=== PATIENT | female | born 1980 | race Caucasian/White ===

== ENCOUNTER 2017-02-18 09:32 | Day surgery (SDC) | payer OTHER ==
--- NOTE | 2017-02-11 16:40 | HISTORY AND PHYSICAL E ---
History and Physical NAME: EDILSON RAMEY : 1980 AGE: 36Y ADMITTED: 02/18/2017 ROOM: CHIEF COMPLAINT: Ulcerative colitis. HISTORY OF PRESENT ILLNESS: Known to us. Presented at this time with rectal bleeding ulcerative colitis. We saw in 2010 when she underwent colonoscopy. She is on Asacol. PLAN: Colonoscopy. PAST SURGICAL HISTORY: Negative. SOCIAL HISTORY: Does not smoke, does not drink. ALLERGIES: No known allergies. REVIEW OF SYSTEMS: Rectal bleeding, ulcerative colitis. EXAM: VITAL SIGNS: Blood pressure is 120/80, pulse 80, respirations 18, temp is 98. HEENT: Normal. ABDOMEN: Soft. NEUROLOGIC: Negative. CONCLUSION: Ulcerative colitis. PLAN: Colonoscopy. MEDICATIONS: 1. Asacol. 2. Lialda. 3. Canasa. PLAN: Colon scheduled for 02/18. DICTATING PHYSICIAN: CHIVO SOSA M.D. [id number] PHY#: [id number] ID: [id number] JOB#: [id number] ACCT: [id number] cc:CHIVO SOSA M.D., SWETANG M.D. >
[~2017-02-18 09:32] MED LIST: EPINEPHRINE INJ 1 MG/10 ML DISP.SYRIN ONE; FENTANYL CITRATE INJ/PF 100 MCG/2 ML AMPUL ONE; FLUMAZENIL INJ 0.5 MG/5 ML VIAL IV ONE; GLUCAGON,HUMAN RECOMB 1 MG INJ ONE; GLYCOPYRROLATE INJ 0.4 MG/2 ML VIAL ONE; LIDOCAINE 2% JELLY 30 ML TUBE ONE; NALOXONE HCL INJ/PF 0.4 MG/1 ML SDV ONE; ONDANSETRON HCL INJ/PF 4 MG/2 ML SDV ONE
[2017-02-18] MEDS: MIDAZOLAM 2 MG/2 ML INJ ONE ×3 (10:10→10:18)
[2017-02-18] MEDS: FENTANYL CITRATE INJ/PF 100 MCG/2 ML AMPUL ONE ×2 (10:12→10:21)
[2017-02-18 11:30] VITALS: BP 104/73
[2017-02-18 11:30] LABS: ABSOLUTE BASOPHILS # (AUTO) 0.1 10^3/uL (0.0-0.2); ABSOLUTE EOSINOPHILS # (AUTO) 0.2 10^3/uL (0.0-0.6); ABSOLUTE LYMPHOCYTES (AUTO) 1.9 10^3/uL (0.5-4.7); ABSOLUTE MONOCYTES (AUTO) 0.4 10^3/uL (0.1-1.4); ABSOLUTE NEUT (AUTO) 4.4 10^3/uL (1.7-8.2); BASOPHILS % (AUTO) 0.8 % (0-2); EOSINOPHILS % (AUTO) 2.5 % (0-6); HEMATOCRIT 36.5 % (36.0-47.0); HEMOGLOBIN 12.3 g/dL (12.0-15.5); HGB HCT DIFFERENCE 0.4; LYMPHOCYTES % (AUTO) 27.1 % (13-45); MEAN CORPUSCULAR HEMOGLOBIN 28.3 pg (27.0-33.4); MEAN CORPUSCULAR HGB CONC 33.7 g/dL (32.0-36.0); MEAN CORPUSCULAR VOLUME 84 fl (80-97); MONOCYTES % (AUTO) 5.1 % (3-13); RED BLOOD COUNT 4.34 10^6/uL (3.72-5.28); SEGMENTED NEUTROPHILS % (AUTO) 64.5 % (42-78); WHITE BLOOD COUNT 6.9 10^3/uL (4.0-10.5)
[2017-02-18 12:11] LABS: ERYTHROCYTE SEDIMENTATION RATE 21 mm/hr (0-20)
--- NOTE | 2017-02-18 15:39 | DISCHARGE SUMMARY E ---
Discharge Summary NAME: EDILSON RAMEY : 1980 AGE: 36Y ADMITTED: 02/18/2017 DISCHARGED: 02/18/2017 PROCEDURE: Colonoscopy, biopsy. HISTORY OF PRESENT ILLNESS: Patient is a 36-year-old female who presented with rectal bleeding. She is known to have ulcerative colitis well controlled on mesalamine, Lialda 1.2 g 3 tablets daily, vitamin D. DISCHARGE PLAN: Awaiting biopsy results. Continue medications, Lialda. Soft diet today. Patient to see us in the office in the next few days. FINAL DIAGNOSIS: Ulcerative colitis. PLAN: Consider age and followup colonoscopy after 2 years. Patient allergic to PENICILLIN. DICTATING PHYSICIAN: CHIVO SOSA M.D. [id number] PHY#: [id number] ID: [id number] JOB#: [id number] ACCT: [id number] cc:CHIVO SOSA M.D., SWETANG M.D. >
--- NOTE | 2017-02-19 10:43 | OPERATIVE REPORT E ---
Operative Report NAME: EDILSON RAMEY : 1980 AGE: 36Y DATE OF SURGERY: ROOM: PREOPERATIVE DIAGNOSIS: BLEEDING ULCERATIVE COLITIS. POSTOPERATIVE DIAGNOSIS: ULCERATIVE COLITIS WITH SEIZURE, tissue removed of the biopsy right colon, biopsy left colon, biopsy rectum. ANESTHESIA: Versed 4, fentanyl 150. DESCRIPTION: Rectal exam shows inflammation in the rectum. Sigmoid shows less inflammation. Descending colon mild inflammation. Transverse colon looks normal. Ascending colon looks normal. Cecum normal. Biopsy obtained right colon the appendix visualized. Cecum visualized. There are no polyps, no malignancy. Scope was done back from cecum, ascending, transverse, descending, sigmoid all the way to the rectum. SURGEON: CHIVO SOSA M.D. CONCLUSION: Ulcerative colitis diffuse more prominent in the rectal sigmoid colon. No evidence of malignancy. PLAN: Awaiting biopsy results. Consider for colonoscopy every 2 years. FINAL DIAGNOSIS: Ulcerative colitis. No evidence of malignancy. Mostly involving the rectal sigmoid colon. DICTATING PHYSICIAN: CHIVO SOSA M.D. [id number] PHY#: [id number] ID: [id number] JOB#: [id number] ACCT: [id number] cc:CHIVO SOAS M.D. >
== END 2017-02-18 11:40 | disposition home or self-care (01) ==
LOC: END 09:32
PROVIDERS: ATTEND Specialist
PROC: 0DBG8ZX Excision of Left Large Intestine, Via Natural or Artificial Opening Endoscopic, Diagnostic (ICD-10-PCS; 2017-02-18)
PROC: 0DBP8ZX Excision of Rectum, Via Natural or Artificial Opening Endoscopic, Diagnostic (ICD-10-PCS; 2017-02-18)
PROC: 0DBF8ZX Excision of Right Large Intestine, Via Natural or Artificial Opening Endoscopic, Diagnostic (ICD-10-PCS; principal; 2017-02-18 10:00)
DX: K51.90 Ulcerative colitis, unspecified, without complications (principal); K62.89 Other specified diseases of anus and rectum; K62.5 Hemorrhage of anus and rectum; Z79.899 Other long term (current) drug therapy; Z88.0 Allergy status to penicillin
CPT/HCPCS: 45380; 36415; 85025; 85652; 86140; 88305 ×2; J2250; J3010; J2405; J0171; J1610; J2310; J3490

== ENCOUNTER 2017-11-10 09:29 | Emergency (ER) | payer OTHER ==
[2017-11-10] MEDS ORDERED: ACETAMINOPHEN 325 MG TABLET PO ONE (09:31)
--- NOTE | 2017-11-10 10:21 | ER Document Report ---
ED General - General Chief Complaint: Foot Pain Stated Complaint: LEFT FOOT PAIN/SWELLING Time Seen by Provider: 11/10/17 10:09 Mode of Arrival: Ambulatory Information source: Patient Notes: Patient is a 37-year-old female who presents with left ankle and foot pain that started 4 days ago. She states she possibly twisted it but is unsure of a specific injury. She did elevate it and took ibuprofen last night and was given Tylenol here for pain. She endorses associated swelling but denies any redness, warmth, ecchymosis. Otherwise she is doing well. TRAVEL OUTSIDE OF THE [place] IN LAST 30 DAYS: No - Related Data Allergies/Adverse Reactions: Penicillins Allergy (Severe, Verified 02/17/17 13:31) swelling,rash Past Medical History - General Information source: Patient - Social History Smoking Status: Never Smoker Chew tobacco use (# tins/day): No Frequency of alcohol use: Occasional Drug Abuse: None Family History: Reviewed & Not Pertinent, Hypertension Patient has suicidal ideation: No Patient has homicidal ideation: No - Past Medical History Cardiac Medical History: Denies: Hx Coronary Artery Disease, Hx Heart Attack, Hx Hypertension Pulmonary Medical History: Reports: Hx Asthma Denies: Hx Bronchitis, Hx COPD, Hx Pneumonia Neurological Medical History: Reports: Hx Migraine. Denies: Hx Cerebrovascular Accident, Hx Seizures Renal/ Medical History: Reports: Hx Ovarian Cysts - hx of. Denies: Hx Kidney Stones, Hx Peritoneal Dialysis, Hx Pelvic Inflammatory Disease Malignancy Medical History: Denies: Hx Breast Cancer, Hx Cervical Cancer, Hx Ovarian Cancer GI Medical History: Reports: Hx Ulcerative Colitis. Denies: Hx Gastroesophageal Reflux Disease, Hx Hiatal Hernia, Hx Ulcer Musculoskeltal Medical History: Denies Hx Arthritis, Denies Hx Fibromyalgia Traumatic Medical History: Reports: Hx Fractures - rt collarbone,sternum,ribs bilateral Infectious Medical History: Denies: Hx HIV Past Surgical History: Reports: Hx Section - x1, Hx Cholecystectomy - x1, Hx Tubal Ligation. Denies: Hx Hysterectomy, Hx Pacemaker - Immunizations Hx Diphtheria, Pertussis, Tetanus Vaccination: Yes Review of Systems - Review of Systems Constitutional: See HPI EENT: No symptoms reported Cardiovascular: No symptoms reported Respiratory: No symptoms reported Gastrointestinal: No symptoms reported Genitourinary: No symptoms reported Female Genitourinary: No symptoms reported Musculoskeletal: See HPI Skin: No symptoms reported Hematologic/Lymphatic: No symptoms reported Neurological/Psychological: See HPI Physical Exam - Notes Notes: PHYSICAL EXAM: CONSTITUTIONAL: Alert and oriented, well-appearing and in no acute distress. HENT: Normocephalic, atraumatic. Trachea midline. Uvula midline. Moist mucous membranes. EYES: Pupils equal round and reactive to light, EOM intact. Sclera anicteric, conjunctiva are normal. No entrapment. NECK: supple without lymphadenopathy. No midline tenderness or paraspinous muscle spasms. No step-offs or deformities. ROM intact. HEART: Regular rate and rhythm without murmurs. LUNGS: CTAB and equal. No wheezes, rales or rhonchi. BACK: nontender, no paraspinous spasm, 5+/5 strengths, DTRs 2+, SLR -. EXTREMITIES: Left ankle -tender to palpation over lateral malleolus with mild edema, no ecchymosis, no deformity, no erythema or warmth. Range of motion limited secondary to pain, no pitting edema. No cyanosis. Cap Refill <3 seconds. NEURO: Cranial nerves grossly intact. Normal sensory/motor exams. PSYCH: Normal mood, normal affect. SKIN: Warm and dry. Normal turgor. No rashes or lesions noted. Course - Re-evaluation Re-evalutation: 11/10/17 10:21 Patient seen and examined. No obvious deformity on exam. Neurovascular intact including good distal pedal pulses. Will obtain x-ray and patient given Tylenol. 11/10/17 11:26 Reviewed imaging studies. No fracture dislocation, mild tissue swelling. Will treat for ankle sprain with ankle stirrup splint and crutches. Will treat with NSAIDs and advised RICE care instructions. Advised she can follow-up with orthopedics. At this time, will discharge with return precautions and follow-up recommendations. Verbal discharge instructions given at the bedside and opportunity for questions given. Medication warnings reviewed. Patient is in agreement with this plan and has verbalized understanding of return precautions and the need for primary care follow-up in the next 24-72 hours. - Diagnostic Test Radiology reviewed: Image reviewed, Reports reviewed Discharge - Discharge Clinical Impression: Left ankle sprain Qualifiers: Encounter type: initial encounter Involved ligament of ankle: unspecified ligament Qualified Code(s): S93.402A - Sprain of unspecified ligament of left ankle, initial encounter Condition: Stable Disposition: HOME, SELF-CARE Additional Instructions: SPRAIN: Your injury is a sprain. A sprain results from stretching or tearing of the ligaments, usually from a twisting injury. The ligaments will require time and protection in order to heal properly. Many sprains are quite disabling and should be taken seriously. The usual initial treatment of sprains is cold packs, elevation, and rest of the injured area. Your physician has assessed the seriousness of your ligament injury, and has outlined a treatment plan. Understand that this treatment may change, depending on how you progress. If a re-examination was recommended, it is important that you follow up as instructed. Call the doctor any time if there is severe pain, numbness, or loss of function in the injured area. TEE WRAP: A compression dressing (tee wrap) has been placed. This helps hold the area still. It limits swelling and internal bleeding. The wrap should be comfortably snug -- not tight. You should feel a sense of pressure, but not severe pain under the wrap. Unless the physician tells you otherwise, you can adjust the wrap for comfort. If the wrap causes symptoms suggesting it's too tight -- uncomfortable pressure, swelling or discoloration beyond the wrap, numbness, or severe pain - - you must loosen the wrap. If these symptoms don't resolve promptly, return for re-evaluation. SPRAINED ANKLE: Your sprained ankle results from stretching or tearing of the ligaments which support the ankle. This usually results from twisting the foot inward and under. The ligaments will require time and protection in order to heal properly. Many ankle sprains are quite disabling, and should be taken seriously. The usual treatment for an ankle sprain is cold packs; protection with tape , splints, or wraps; elevation; and staying off the ankle for at least a day. As the ankle improves, you can walk IF it's not painful to bear weight. Sports are best postponed until healing is complete. More serious sprains usually require strengthening exercises after early healing. Your physician has assessed the seriousness of the ligament injury to your ankle. However, the treatment may change, depending on how your ankle progresses. If further exams were recommended, it is important that you follow through. Call the doctor if your foot becomes numb, painful, or severely swollen. USE OF CRUTCHES: The doctor has recommended that you not bear weight at this time. You will need to use crutches. Adjust the crutches so the tops come to about two inches under the armpit while you are standing upright. Use your hands -- not your armpits -- to support your weight. To get into a chair, support yourself with one crutch on the injured side. Hold the chair with the other hand, then lower yourself while putting all your weight on the good leg. Going up stairs is `good leg up, step up, then bring up crutches and bad leg.' Down stairs is `bad leg and crutches down, then bring good leg down.' If you develop numbness or swelling in an arm or hand, you are using the crutches incorrectly. Return if you are having any problems with the crutches. ICE & ELEVATION: Apply ice packs frequently against the painful area. Many different schedules are recommended, such as "20 minutes on, 20 minutes off" or "one hour ice, two hours rest." If you need to work, you may need to go longer between ice treatments. You should plan to have the area ice packed AT LEAST one- fourth of the time. The ice should be applied over the wrap, tape, or splint, or over a layer of cloth -- not directly against the skin. Some ice bags have a built-in cloth and can be put directly on the skin. Your injured part should be elevated as much as possible over the next 48 hours. Try to keep the injury above the level of the heart. Avoid use of the injured area. Elevation and rest will decrease the swelling. USE OF EVOT-CGU-GOFBKAK IBUPROFEN: Ibuprofen (Advil, Nuprin, Medipren, Motrin IB) is a medication for fever and pain control. In addition, it has anti- inflammatory effects which may be beneficial, especially in the treatment of injuries. It's best to take ibuprofen with food. Persons with ulcer disease or allergy to aspirin should notify their physician of this before taking ibuprofen. Ibuprofen can be given every four to six hours, for a total of four doses daily. Age Pain or fever dose Antiinflammatory dose 6-8 yr 200 mg (1 tab) 200 mg (1 tab) 9-11 yr 200 mg (1 tab) 200-400 mg (1-2 tab) 11-14 yr 200-400 mg (1-2 tab) 400 mg (2 tab) 15-adult 400 mg (2 tab) 600 mg (3 tab) FOLLOW-UP CARE: If you have been referred to a physician for follow-up care, call the physician s office for an appointment as you were instructed or within the next two days. If you experience worsening or a significant change in your symptoms, notify the physician immediately or return to the Emergency Department at any time for re-evaluation. Prescriptions: Naproxen [Naprosyn 250 mg Tablet] 500 mg PO BID #20 tablet
--- NOTE | 2017-11-10 11:14 | RADIOLOGY REPORT (SQ) ---
EXAM DESCRIPTION: ANKLE LEFT COMPLETE COMPLETED DATE/TIME: 11/10/2017 10:56 am REASON FOR STUDY: left ankle pain and swelling COMPARISON: None. NUMBER OF VIEWS: Three views. TECHNIQUE: AP, lateral, and oblique without weight bearing radiographic images acquired of the left ankle. LIMITATIONS: None. FINDINGS: MINERALIZATION: Normal. BONES: No acute fracture or dislocation. No worrisome bone lesions. Small heel spur JOINTS: No effusions. SOFT TISSUES: Mild generalized soft tissue swelling OTHER: No other significant finding. IMPRESSION: Mild soft tissue swelling. Small heel spur. Study otherwise normal. TECHNICAL DOCUMENTATION: JOB ID: [id number] [email or web address]
[2017-11-10 12:16] VITALS: BP 129/83
== END 2017-11-10 12:15 | disposition home or self-care (01) ==
LOC: ER 09:29
DX: S93.402A Sprain of unspecified ligament of left ankle, initial encounter (principal); M79.672 Pain in left foot; M79.89 Other specified soft tissue disorders; X50.1XXA Overexertion from prolonged static or awkward postures, initial encounter
CPT/HCPCS: 99283

== ENCOUNTER 2018-01-24 12:23 | Emergency (ER) | payer OTHER ==
[2018-01-24] MEDS ORDERED: ACETAMINOPHEN 325 MG TABLET PO ONE (13:45)
[2018-01-24] MEDS ORDERED: CYCLOBENZAPRINE HCL 10 MG TABLET PO ONE (13:46)
[2018-01-24] MEDS ORDERED: KETOROLAC TROMETHAMINE INJ/PF 30 MG/1 ML SDV IM ONE (13:49)
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
[2018-01-24 14:47] VITALS: BP 127/81
== END 2018-01-24 14:47 | disposition home or self-care (01) ==
LOC: ER 12:23
DX: S16.1XXA Strain of muscle, fascia and tendon at neck level, initial encounter (principal); S29.012A Strain of muscle and tendon of back wall of thorax, initial encounter; S46.912A Strain of unspecified muscle, fascia and tendon at shoulder and upper arm level, left arm, initial encounter; V49.40XA Driver injured in collision with unspecified motor vehicles in traffic accident, initial encounter; J45.909 Unspecified asthma, uncomplicated; Z87.81 Personal history of (healed) traumatic fracture; Z88.0 Allergy status to penicillin
CPT/HCPCS: 99284; 96372; J1885

== ENCOUNTER 2019-03-07 10:33 | Day surgery (SDC) | payer OTHER ==
[~2019-03-07 10:33] MED LIST changes: -EPINEPHRINE INJ 1 MG/10 ML DISP.SYRIN ONE; -FENTANYL CITRATE INJ/PF 100 MCG/2 ML AMPUL ONE; -FLUMAZENIL INJ 0.5 MG/5 ML VIAL IV ONE; -GLUCAGON,HUMAN RECOMB 1 MG INJ ONE; -GLYCOPYRROLATE INJ 0.4 MG/2 ML VIAL ONE; -LIDOCAINE 2% JELLY 30 ML TUBE ONE; -NALOXONE HCL INJ/PF 0.4 MG/1 ML SDV ONE; -ONDANSETRON HCL INJ/PF 4 MG/2 ML SDV ONE; +PROPOFOL INJ 200 MG/20 ML VIAL IV ONE
[2019-03-07 13:26] VITALS: BP 119/72
--- NOTE | 2019-03-07 14:00 | Operative Report ---
Operative Report DATE OF SURGERY: 03/07/19 Operative Report: The risks, benefits and alternatives of the procedure including the risk of bleeding, perforation requiring surgery have been explained to the patient in detail and informed consent has been obtained. Patient is placed in a left, lateral decubital position. Timeout was called. Propofol medication is administered. A rectal examination is done which did not reveal any masses, tears or fissures. An Olympus videoscope was introduced into the patient's re ctum. The scope was then carefully advanced all the way to the cecum. The cecum was identified by the usual anatomical landmarks including the ileocecal valve as well as the appendiceal office. Photodocumentation is obtained. The scope was then sequentially pulled back via the rest segments of the colon including the ascending colon, hepatic flexure, transverse colon, splenic flexure, descending colon and finally into the rectosigmoid portions of the colon. Retroflexion maneuvers performed. PREOPERATIVE DIAGNOSIS: History of ulcerative colitis POSTOPERATIVE DIAGNOSIS: There is a slight mucosal edema and inflammation noted in the area of the rectum as well as on the right side of the colon with loss of mucosal blood vessel architecture. Intubation of the terminal ileum is done to rule out Crohn's disease. Internal hemorrhoids OPERATION: Colonoscopy with biopsy SURGEON: HAZEL LAURENT ANESTHESIA: LMAC TISSUE REMOVED OR ALTERED: As noted above. COMPLICATIONS: None. ESTIMATED BLOOD LOSS: None. INTRAOPERATIVE FINDINGS: As noted above. PROCEDURE: Patient tolerated the procedure well. No immediate postprocedure complications are noted. Patient discharged in good condition. Discharge date 03/07/2019. Discharge diet: Regular. Discharge activity: Regular. 2 to 3-week follow-up to discuss findings. Patient is instructed to call the office or proceed to the emergency room should there be any further questions. Wait on the pathology.
== END 2019-03-07 13:30 | disposition home or self-care (01) ==
LOC: END 10:33
PROVIDERS: ATTEND Internal Medicine Gastroenterology
DX: K92.1 Melena (principal); K52.9 Noninfective gastroenteritis and colitis, unspecified; K64.8 Other hemorrhoids; E66.9 Obesity, unspecified; D51.9 Vitamin B12 deficiency anemia, unspecified; J45.909 Unspecified asthma, uncomplicated; Z88.0 Allergy status to penicillin; Z68.41 Body mass index [BMI] 40.0-44.9, adult; Z79.51 Long term (current) use of inhaled steroids; Z79.899 Other long term (current) drug therapy
CPT/HCPCS: 45380; 88305 ×2; J2704

== ENCOUNTER → 2019-03-21 | Outpatient (CLI) | payer OTHER ==
[2019-03-22 08:42] LABS: HEPATITIS A AB IGM Negative (Negative); HEPATITIS B CORE AB IGM Negative (Negative); HEPATITS B SURFACE ANTIGEN Negative (Negative)
[2019-03-22 10:55] LABS: HEPATITIS C VIRUS ANTIBODY <0.1 s/co ratio (0.0-0.9)
== END ==
LOC: OD 08:25
PROVIDERS: ATTEND Internal Medicine Gastroenterology
DX: K50.90 Crohn's disease, unspecified, without complications (principal)
CPT/HCPCS: 36415; 80074

== ENCOUNTER 2019-03-29 07:34 | Observation (INO) | payer OTHER ==
[2019-03-29] MEDS ORDERED: ASPIRIN 81 MG TABLET, CHEWABLE PO ONE (08:19)
--- NOTE | 2019-03-29 08:20 | ER Document Report ---
ED General - General Chief Complaint: Chest Pain Stated Complaint: RIGHT SIDE NUMBNESS Time Seen by Provider: 03/29/19 07:58 Primary Care Provider: HAZEL LAURENT MD [Primary Care Provider] - Follow up as needed Notes: This is a 38-year-old pleasant female to the emergency department for evaluation of right facial numbness, chest pain and not feeling right for approximately 2 weeks now. Was seen by her primary care doctor and had a head CT done 1 week ago as she was complaining of numbness on the right side of the face. History of ulcerative colitis. Currently on steroids. On diabetes medications. States that she may feel a little weakness on the right upper extremity and right lower extremity as well. States that she had some slurred speech as well. Denies any blurred vision. Denies any significant headache. No fever. No neck stiffness. No prior history of MS. TRAVEL OUTSIDE OF THE [place] IN LAST 30 DAYS: No - HPI Onset/Duration: Gradual, Constant Severity: Mild Pain Level: 1 Associated symptoms: Chest pain - Related Data Allergies/Adverse Reactions: Penicillins Allergy (Severe, Verified 03/29/19 10:53) swelling,rash Past Medical History - General Information source: Patient - Social History Smoking Status: Never Smoker Frequency of alcohol use: None Drug Abuse: None Lives with: Family Family History: Arthritis, COPD, Hyperlipidemia, Hypertension, Malignancy. denies: CAD, CVA, DM, Thyroid Disfunction - Past Medical History Cardiac Medical History: Denies: Hx Coronary Artery Disease, Hx Heart Attack, Hx Hypertension Pulmonary Medical History: Reports: Hx Asthma Denies: Hx Bronchitis, Hx COPD, Hx Pneumonia Neurological Medical History: Reports: Hx Migraine. Denies: Hx Cerebrovascular Accident, Hx Seizures Renal/ Medical History: Reports: Hx Ovarian Cysts - hx of. Denies: Hx Kidney Stones, Hx Peritoneal Dialysis, Hx Pelvic Inflammatory Disease Malignancy Medical History: Denies: Hx Breast Cancer, Hx Cervical Cancer, Hx Ovarian Cancer GI Medical History: Reports: Hx Ulcerative Colitis. Denies: Hx Gastroesophageal Reflux Disease, Hx Hiatal Hernia, Hx Ulcer Musculoskeletal Medical History: Denies Hx Arthritis, Denies Hx Fibromyalgia Traumatic Medical History: Reports: Hx Fractures - rt collarbone,sternum,ribs bilateral Infectious Medical History: Denies: Hx HIV Past Surgical History: Reports: Hx Section - x1, Hx Cholecystectomy - x1, Hx Tubal Ligation. Denies: Hx Hysterectomy, Hx Pacemaker - Immunizations Immunizations up to date: Yes Hx Diphtheria, Pertussis, Tetanus Vaccination: Yes Review of Systems - Review of Systems Notes: Constitutional: denies: Chills, Diaphoresis, Fever, Malaise, Weakness EENT: denies: Eye discharge, Blurred vision, Tearing, Double vision, Nose congestion, Nose discharge, Throat swelling, Mouth pain Cardiovascular: denies: Palpitations, Heart racing, Orthopnea, Dyspnea, +Chest pain Respiratory: denies: Cough, Hurts to breathe, Wheezing, Shortness of breath Gastrointestinal: denies: Abdominal pain, Diarrhea, Nausea, Vomiting, Black stools, bright red blood in stool Genitourinary: denies: Burning, Dysuria, Discharge, Frequency, Flank pain, Hematuria Musculoskeletal: denies: Joint pain, Joint swelling, Muscle pain, Muscle stiffness, back pain Hematologic/Lymphatic: denies: Anemia, Easy bleeding, Easy bruising, Blood cl ots Neurological/Psychological: denies: Confusion, Dementia, Depression, Loss of consciousness. Complaining of weakness and numbness on the right side of the body especially the face. Questionable slurred speech? Skin: No lesions, no masses, no skin breakdown, no abscesses Physical Exam - Vital signs Vitals: Temp Pulse Resp BP Pulse Ox 98 F 85 18 130/79 H 97 03/29/19 07:43 03/29/19 07:43 03/29/19 07:43 03/29/19 07:43 03/29/19 07:43 Interpretation: Normal - General General appearance: Appears well, Alert - HEENT Head: Normocephalic, Atraumatic Eyes: Normal Pupils: PERRL - Respiratory Respiratory status: No respiratory distress Chest status: Nontender Breath sounds: Normal Chest palpation: Normal - Cardiovascular Rhythm: Regular Heart sounds: Normal auscultation Murmur: No - Abdominal Inspection: Normal Distension: No distension Bowel sounds: Normal Tenderness: Nontender Organomegaly: No organomegaly - Back Back: Normal, Nontender - Extremities General upper extremity: Normal inspection, Nontender, Normal color, Normal ROM, Normal temperature General lower extremity: Normal inspection, Nontender, Normal color, Normal ROM, Normal temperature, Normal weight bearing. No: Julius's sign - Neurological Neuro grossly intact: Yes Cognition: Normal Orientation: AAOx4 Decherd Coma Scale Eye Opening: Spontaneous Decherd Coma Scale Verbal: Oriented Edgardo Coma Scale Motor: Obeys Commands Decherd Coma Scale Total: 15 Speech: Normal Motor strength normal: LUE, LLE. No: RUE, RLE Additional motor exam normals: Weakness - Light weakness noted in the right upper extremity and right lower extremity. There is appeared to be a small pronator drift on the right both of the upper and lower extremities. Sensory: Normal - Psychological Associated symptoms: Normal affect, Normal mood - Skin Skin Temperature: Warm Skin Moisture: Dry Skin Color: Normal Course - Re-evaluation Re-evalutation: 03/29/19 11:09 Laboratory 03/29/19 03/29/19 03/29/19 08:30 08:30 08:30 WBC 11.1 H RBC 4.71 Hgb 13.1 Hct 39.3 MCV 83 MCH 27.8 MCHC 33.3 RDW 13.8 Plt Count 274 Seg Neutrophils % 83.0 H Lymphocytes % 12.7 L Monocytes % 2.8 L Eosinophils % 0.6 Basophils % 0.9 Absolute Neutrophils 9.2 H Absolute Lymphocytes 1.4 Absolute Monocytes 0.3 Absolute Eosinophils 0.1 Absolute Basophils 0.1 PT 12.2 INR 0.86 APTT 24.1 Sodium 140.0 Potassium 4.5 Chloride 103 Carbon Dioxide 27 Anion Gap 10 BUN 18 Creatinine 0.81 Est GFR ( Amer) > 60 Est GFR (Non-Af Amer) > 60 Glucose 103 Calcium 9.3 Total Bilirubin 1.0 Direct Bilirubin 0.2 Neonat Total Bilirubin Not Reportable Neonat Direct Bilirubin Not Reportable Neonat Indirect Bili Not Reportable AST 15 ALT 26 Alkaline Phosphatase 80 Creatine Kinase 50 CK-MB (CK-2) Troponin I Total Protein 6.8 Albumin 4.1 03/29/19 08:30 WBC RBC Hgb Hct MCV MCH MCHC RDW Plt Count Seg Neutrophils % Lymphocytes % Monocytes % Eosinophils % Basophils % Absolute Neutrophils Absolute Lymphocytes Absolute Monocytes Absolute Eosinophils Absolute Basophils PT INR APTT Sodium Potassium Chloride Carbon Dioxide Anion Gap BUN Creatinine Est GFR ( Amer) Est GFR (Non-Af Amer) Glucose Calcium Total Bilirubin Direct Bilirubin Neonat Total Bilirubin Neonat Direct Bilirubin Neonat Indirect Bili AST ALT Alkaline Phosphatase Creatine Kinase CK-MB (CK-2) < 0.22 Troponin I < 0.012 Total Protein Albumin Chest X-Ray 03/29/19 08:19 IMPRESSION: 1. No significant interval changes since the prior study dated 03/21/2014. No acute findings. Head MRI 03/29/19 08:19 IMPRESSION: NORMAL MRI OF THE BRAIN WITHOUT INTRAVENOUS GADOLINIUM CONTRAST. EVIDENCE OF ACUTE STROKE: NO. Patient still has weakness of the right upper extremity and mild pronator drift in the setting of a normal MRI. Very uncomfortable discharging a 38-year-old patient with these neurological symptoms. I have consulted with the hospitalist. At this time I am going to admit her for further evaluation and treatment. - Vital Signs Vital signs: Temp Pulse Resp BP Pulse Ox 98.8 F 85 17 135/84 H 99 03/29/19 09:54 03/29/19 07:43 03/29/19 10:01 03/29/19 10:01 03/29/19 10:01 - Laboratory Result Diagrams: 03/29/19 08:30 03/29/19 08:30 Laboratory results interpreted by me: 03/29/19 08:30 WBC 11.1 H Seg Neutrophils % 83.0 H Lymphocytes % 12.7 L Monocytes % 2.8 L Absolute Neutrophils 9.2 H - EKG Interpretation by De EKG shows normal: Sinus rhythm, Intervals, QRS Complexes, ST-T Waves Voltage: Consistant with LVH Discharge - Discharge Clinical Impression: Right sided weakness Condition: Good Disposition: ADMITTED INPATIENT Admitting Provider: Efrain (Hospitalist) Unit Admitted: Telemetry Referrals: HAZEL LAURENT MD [Primary Care Provider] - Follow up as needed
[2019-03-29 08:45] LABS: ABSOLUTE BASOPHILS # (AUTO) 0.1 10^3/uL (0.0-0.2); ABSOLUTE EOSINOPHILS # (AUTO) 0.1 10^3/uL (0.0-0.6); ABSOLUTE LYMPHOCYTES (AUTO) 1.4 10^3/uL (0.5-4.7); ABSOLUTE MONOCYTES (AUTO) 0.3 10^3/uL (0.1-1.4); ABSOLUTE NEUT (AUTO) 9.2 10^3/uL (1.7-8.2); BASOPHILS % (AUTO) 0.9 % (0-2); EOSINOPHILS % (AUTO) 0.6 % (0-6); HEMATOCRIT 39.3 % (36.0-47.0); HEMOGLOBIN 13.1 g/dL (12.0-15.5); LYMPHOCYTES % (AUTO) 12.7 % (13-45); MEAN CORPUSCULAR HEMOGLOBIN 27.8 pg (27.0-33.4); MEAN CORPUSCULAR HGB CONC 33.3 g/dL (32.0-36.0); MEAN CORPUSCULAR VOLUME 83 fl (80-97); MONOCYTES % (AUTO) 2.8 % (3-13); PLATELET COUNT 274 10^3/uL (150-450); RED BLOOD COUNT 4.71 10^6/uL (3.72-5.28); RED CELL DISTRIBUTION WIDTH 13.8 % (11.5-14.0); TOTAL CELLS COUNTED % (AUTO) 100 %; WHITE BLOOD COUNT 11.1 10^3/uL (4.0-10.5)
[2019-03-29 08:52] LABS: INTERNATIONAL RATION (INR) 0.86; PARTIAL THROMBOPLASTIN TIME 24.1 SEC (23.5-35.8); PROTHROMBIN TIME 12.2 SEC (11.4-15.4)
[2019-03-29 09:10] LABS: ALANINE AMINOTRANSFERASE 26 U/L (9-52); ALBUMIN 4.1 g/dL (3.5-5.0); ALKALINE PHOSPHATASE 80 U/L (38-126); ANION GAP 10 (5-19); ASPARTATE AMINO TRANSFERASE 15 U/L (14-36); BILIRUBIN,DIRECT 0.2 mg/dL (0.0-0.4); BLOOD UREA NITROGEN 18 mg/dL (7-20); CALCIUM 9.3 mg/dL (8.4-10.2); CARBON DIOXIDE 27 mmol/L (22-30); CHLORIDE 103 mmol/L (98-107); CREATINE KINASE 50 U/L (30-135); GLUCOSE 103 mg/dL (75-110); POTASSIUM 4.5 mmol/L (3.6-5.0); TOTAL PROTEIN 6.8 g/dL (6.3-8.2)
--- NOTE | 2019-03-29 09:10 | RADIOLOGY REPORT (SQ) ---
EXAM DESCRIPTION: CHEST SINGLE VIEW COMPLETED DATE/TIME: 03/29/2019 8:53 am REASON FOR STUDY: chest pain COMPARISON: 03/21/2014 EXAM PARAMETERS: NUMBER OF VIEWS: One view. TECHNIQUE: Single frontal radiographic view of the chest acquired. RADIATION DOSE: NA LIMITATIONS: None. FINDINGS: LUNGS AND PLEURA: No opacities, masses or pneumothorax. No pleural effusion. MEDIASTINUM AND HILAR STRUCTURES: No masses. Contour normal. HEART AND VASCULAR STRUCTURES: Heart normal in size. Normal vasculature. BONES: No acute findings. HARDWARE: None in the chest. OTHER: No other significant finding. IMPRESSION: 1. No significant interval changes since the prior study dated 03/21/2014. No acute find ings. TECHNICAL DOCUMENTATION: JOB ID: [id number] [employer]- All Rights Reserved Reading location - IP/workstation name: [email or web address]
[2019-03-29 09:23] LABS: CREATINE KINASE MB < 0.22 ng/mL (<4.55); TROPONIN I < 0.012 ng/mL
--- NOTE | 2019-03-29 10:13 | RADIOLOGY REPORT (SQ) ---
EXAM DESCRIPTION: MRI HEAD WITHOUT COMPLETED DATE/TIME: 03/29/2019 9:51 am REASON FOR STUDY: right sided weakness and slurred speech 1 wk COMPARISON: CT brain 06/03/2016 TECHNIQUE: Multiplanar imaging includes non-contrasted T1, T2, FLAIR, and diffusion with ADC map seq uences. Images stored on PACS. LIMITATIONS: None. FINDINGS: ANATOMY: Empty sella, an anatomic variant on sagittal image 13 CSF SPACES: Normal in size and contour. No hemorrhage. CEREBRUM: Sulci and gyri normal in size and contour. Normal white matter signal on FLAIR imaging. No evidence of hemorrhage, mass, or extraaxial fluid collection. POSTERIOR FOSSA: No signal alteration. No hemorrhage. No edema, masses or mass effect. Internal bill tory canals, cerebello-pontine angles, mastoids normal. DIFFUSION IMAGING: Negative for acute or sub-acute infarction. ORBITS: No masses. Globes normal. PARANASAL SINUSES: No fluid levels. Mucosa normal. OTHER: Results discussed with Dr. Castillo in the emergency room IMPRESSION: NORMAL MRI OF THE BRAIN WITHOUT INTRAVENOUS GADOLINIUM CONTRAST. EVIDENCE OF ACUTE STROKE: NO. TECHNICAL DOCUMENTATION: JOB ID: [id number] [employer]- All Rights Reserved Reading location - IP/workstation name: [email or web address]
[2019-03-29] MEDS ORDERED: ONDANSETRON 4 MG TAB.RAPDIS PO PRN (12:42)
[2019-03-29] MEDS ORDERED: NORMAL SALINE 1000 ML 1,000 ML IV PRN (12:42)
[2019-03-29] MEDS ORDERED: DOCUSATE SODIUM 100 MG CAPSULE PO PRN (12:42)
[2019-03-29] MEDS ORDERED: TRAMADOL HCL 50 MG TABLET PO PRN (12:42)
[2019-03-29] MEDS ORDERED: ACETAMINOPHEN 325 MG TABLET PO PRN (12:42)
[2019-03-29] MEDS ORDERED: TEMAZEPAM 15 MG CAPSULE PO PRN (12:42)
--- NOTE | 2019-03-29 12:52 | EKG REPORT ---
SEVERITY:- BORDERLINE ECG - SINUS RHYTHM LVH BY VOLTAGE : Confirmed by: Nhan Joy MD 29-Mar-2019 12:52:02
--- NOTE | 2019-03-29 20:08 | ADVANCED CARE ---
- Diagnosis (1) TIA (transient ischemic attack) Diagnosis Current: Yes (2) Crohn's colitis Diagnosis Current: Yes (3) Diabetes mellitus type 2 in obese Diagnosis Current: Yes (4) Right sided weakness Diagnosis Current: Yes Attendance: patient Resuscitation Status: Full Code Discussion: The patient reports that she has tried to discuss advanced care planning with her who refuses to have that discussion. I explained to the patient that she can certainly complete documents and pointed out that there is a blank [place] healthcare proxy form in her admission packet. We discussed potential choices including specific treatment such as tracheostomy, PEG tube and [facility] facility placement. I explained that she can be a specific or general as she wants. She still has young children who would not be able to make a decision. Her is the designated decision maker but I explained that having document such as this does take some of the pressure off of decision-makers. Care Planning Goals: To complete a healthcare proxy form for herself and encourage her to complete one as well Document(s) Completed: None at this time. The patient will review the blank generic health care proxy form in the admissions packet. Time Spent: 20
--- NOTE | 2019-03-29 20:26 | PDOC H&P ---
History of Present Illness Admission Date/PCP: 03/29/19 11:20 HAZEL LAURENT MD Patient complains of: Weakness on her right side and numbness of the right side of her face History of Present Illness: EDILSON RAMEY is a 38 year old female who was at work when she had acute onset of not feeling well. She felt quite fatigued, hot and dizzy. She noted that the right side of her face was numb. When she had to the emergency department she appreciated weakness in her right arm and leg. She had a similar episode 1 week ago and went to urgent care. The episode resolved in 3 to 4 hours. She has recently started new medications. She has been on Trulicity for 3 weeks and prednisone therapy for 2 weeks. She does not think she had any infections over the last month or so. She reported a runny nose several weeks ago and she gets ear pain on and off. She was referred to the hospitalist service for further work-up and admission. Past Medical History Cardiac Medical History: Denies: Coronary Artery Disease, Myocardial Infarction, Hypertension Pulmonary Medical History: Reports: Asthma Denies: Bronchitis, Chronic Obstructive Pulmonary Disease (COPD), Pneumonia Neurological Medical History: Reports: Migraine Denies: Seizures Endocrine Medical History: Reports: Diabetes Mellitus Type 2 Malignancy Medical History: Denies: Breast Cancer, Cervical Cancer, Ovarian Cancer GI Medical History: Reports: Crohn's Disease - Based on recent colonoscopy it is felt that she has Crohn's more so than UC Denies: Gastroesophageal Reflux Disease, Hiatal Hernia Musculoskeltal Medical History: Denies: Arthritis, Fibromyalgia Hematology: Denies: Anemia, Hemophilia, Sickle Cell Disease Infectious Medical History: Denies: Clostridium Difficile, Hepatitis B, HIV Past Surgical History Past Surgical History: Reports: Section - x1, Cholecystectomy - x1, Tubal Ligation Denies: Hysterectomy, Pacemaker Social History Information Source: Patient Lives with: Family Smoking Status: Never Smoker Frequency of Alcohol Use: Rare Hx Recreational Drug Use: No Hx Prescription Drug Abuse: No - Advance Directive Resuscitation Status: Full Code Surrogate healthcare decision maker:: See separate ACP note. is the designated decision maker. Family History Family History: Arthritis, COPD, Hyperlipidemia, Hypertension, Malignancy. denies: CAD, CVA, DM, Thyroid Disfunction Parental Family History Reviewed: Yes Children Family History Reviewed: Yes Sibling(s) Family History Reviewed.: Yes Medication/Allergy Home Medications: Dulaglutide [Trulicity] 0.5 ml INJ WE@1000 03/29/19 Prednisone [Deltasone 10 mg Tablet] 10 mg PO .DAILY ASDIR PRN 03/29/19 Allergies/Adverse Reactions: Penicillins Allergy (Severe, Verified 03/29/19 10:53) swelling,rash Review of Systems Constitutional: PRESENT: as per HPI, anorexia, fatigue, weakness Eyes: PRESENT: visual disturbances - Right eye somewhat blurry. This started after last week's similar episode. Ears: PRESENT: other - Occasional ear pain. ABSENT: hearing changes Nose, Mouth, and Throat: ABSENT: headache(s), sore throat Cardiovascular: PRESENT: chest pain. ABSENT: edema, palpitations Respiratory: ABSENT: cough, dyspnea, sputum Gastrointestinal: ABSENT: abdominal pain, constipation, diarrhea, nausea, vomiting Genitourinary: ABSENT: difficulty urinating, dysuria, hematuria Musculoskeletal: PRESENT: other - Neck and left hip pain Integumentary: PRESENT: other - Easy bruising. 2 lesions on left leg that she is unaware of the etiology. Neurological: PRESENT: numbness - Right side of face, weakness - Right arm and leg. ABSENT: abnormal speech, confusion, frequent falls Psychiatric: ABSENT: anxiety, hallucinations Endocrine: ABSENT: cold intolerance, heat intolerance Hematologic/Lymphatic: PRESENT: easy bruising. ABSENT: easy bleeding Physical Exam Vital Signs: Temp Pulse Resp BP Pulse Ox 98.8 F 85 16 129/77 H 100 03/29/19 09:54 03/29/19 07:43 03/29/19 12:01 03/29/19 12:01 03/29/19 12:01 Intake & Output 03/28/19 03/29/19 03/30/19 06:59 06:59 06:59 Weight 120.7 kg General appearance: PRESENT: mild distress, morbidly obese, well-developed Head exam: PRESENT: atraumatic, normocephalic Eye exam: PRESENT: conjunctiva pink, EOMI, PERRLA. ABSENT: conjunctival injection, scleral icterus Ear exam: PRESENT: normal external ear exam Mouth exam: PRESENT: moist, tongue midline Respiratory exam: PRESENT: clear to auscultation jackson, symmetrical, unlabored. ABSENT: accessory muscle use, rales, rhonchi, tachypnea, wheezes Cardiovascular exam: PRESENT: RRR, +S1, +S2, systolic murmur - 1/6 Pulses: PRESENT: normal radial pulses, normal dorsalis pedis pul GI/Abdominal exam: PRESENT: normal bowel sounds, soft. ABSENT: distended, tenderness Rectal exam: PRESENT: deferred Gentrourinary exam: ABSENT: indwelling catheter Extremities exam: ABSENT: pedal edema Neurological exam: PRESENT: alert, awake, oriented to person, oriented to place, oriented to time, oriented to situation, CN II-XII grossly intact, motor sensory deficit - right plantar/dorsiflexion, right arm and right leg strengthe 3-4/5. Left 5/5. Patella reflex 1+ symmetric difficult to elicit biceps. numbness right side of face Psychiatric exam: PRESENT: flat affect. ABSENT: agitated, anxious Focused psych exam: ABSENT: delusional, restlessness Results Laboratory Results: 03/29/19 08:30 03/29/19 08:30 03/29/19 03/29/19 08:30 08:30 WBC 11.1 H RBC 4.71 Hgb 13.1 Hct 39.3 MCV 83 MCH 27.8 MCHC 33.3 RDW 13.8 Plt Count 274 Seg Neutrophils % 83.0 H Lymphocytes % 12.7 L Monocytes % 2.8 L Eosinophils % 0.6 Basophils % 0.9 Absolute Neutrophils 9.2 H Absolute Lymphocytes 1.4 Absolute Monocytes 0.3 Absolute Eosinophils 0.1 Absolute Basophils 0.1 Sodium 140.0 Potassium 4.5 Chloride 103 Carbon Dioxide 27 Anion Gap 10 BUN 18 Creatinine 0.81 Est GFR ( Amer) > 60 Est GFR (Non-Af Amer) > 60 Glucose 103 Calcium 9.3 Total Bilirubin 1.0 AST 15 ALT 26 Alkaline Phosphatase 80 Total Protein 6.8 Albumin 4.1 03/29/19 03/29/19 08:30 08:30 Creatine Kinase 50 CK-MB (CK-2) < 0.22 Troponin I < 0.012 Impressions: Chest X-Ray 03/29/19 08:19 IMPRESSION: 1. No significant interval changes since the prior study dated 03/21/2014. No acute findings. Head MRI 03/29/19 08:19 IMPRESSION: NORMAL MRI OF THE BRAIN WITHOUT INTRAVENOUS GADOLINIUM CONTRAST. EVIDENCE OF ACUTE STROKE: NO. Assessment and Plan - Diagnosis (1) Right sided weakness Is this a current diagnosis for this admission?: Yes Plan: The patient has definite right-sided weakness by exam however no abnormal f indings on CT (performed at an outside hospital) nor on the MRI that was performed today. Despite the normal diagnostic imaging the patient clearly has a hemiparesis. We will check echocardiogram and carotid ultrasound. She was given aspirin therapy and started on a statin. We will continue to monitor. (2) TIA (transient ischemic attack) Is this a current diagnosis for this admission?: Yes Plan: The similar episode 1 week ago resolved in 3 to 4 hours. This episode is persisting longer. TIA still makes the most sense however she could be having an adverse reaction to medication or suffer from exposure to noxious fumes however these should cause a diffuse but symmetric constellation of symptoms. In addition, multiple sclerosis can have a similar presentation as well as certain other neuromuscular diseases. We will continue to monitor. (3) Crohn's colitis Qualifiers: Digestive disease complication type: with rectal bleeding Qualified Code(s): K50.111 - Crohn's disease of large intestine with rectal bleeding Is this a current diagnosis for this admission?: Yes Plan: Per the patient, Dr. Vallecillo performed a colonoscopy. He said the tissue was quite friable. He feels it is more likely Crohn's than chronic ulcerative colitis. The patient was placed on prednisone 10 mg twice daily. (4) Diabetes mellitus type 2 in obese Is this a current diagnosis for this admission?: Yes Plan: The patient sees an benefits coordinator in [place]. Evidently her insulin levels were high but she was not exhibiting symptomatic hypoglycemia. The benefits coordinator started her on Trulicity once weekly. She is due tomorrow. I am going to hold the dose to see if there is any improvement of her symptoms possibly relating to an adverse effect of the medication. We will perform Accu- Cheks, have sliding scale coverage and the patient will be placed on a consistent carbohydrate diet (5) Murmur, cardiac Is this a current diagnosis for this admission?: Yes Plan: The patient had a subtle murmur. She was unaware of this previously. It is unlikely but that certainly could be a septal defect. I have ordered an echocardiogram. - Time Time Spent with patient: 35 or more minutes Medications reviewed and adjusted accordingly: Yes Anticipated discharge: Home Within: within 48 hours - Inpatient Certification Medical Necessity: Failure to Improve With Outpatient Therapy, Significant Comorbidiites Make Outpatient Treatment Too Risky, Need For Continuous Telemetry Monitoring, Need for Neurological Checks
[2019-03-29] MEDS: FAMOTIDINE 20 MG TABLET PO SCH (21:06)
[2019-03-29] MEDS: PREDNISONE 10 MG TABLET PO SCH (21:06)
[2019-03-29] MEDS ORDERED: ATORVASTATIN CALCIUM 40 MG TABLET PO SCH (22:00)
[2019-03-30 04:12] LABS: ABSOLUTE BASOPHILS # (AUTO) 0.1 10^3/uL (0.0-0.2); ABSOLUTE EOSINOPHILS # (AUTO) 0.1 10^3/uL (0.0-0.6); ABSOLUTE MONOCYTES (AUTO) 0.5 10^3/uL (0.1-1.4); ABSOLUTE NEUT (AUTO) 10.8 10^3/uL (1.7-8.2); BASOPHILS % (AUTO) 0.6 % (0-2); EOSINOPHILS % (AUTO) 0.4 % (0-6); HEMATOCRIT 38.7 % (36.0-47.0); HEMOGLOBIN 12.7 g/dL (12.0-15.5); MEAN CORPUSCULAR HEMOGLOBIN 27.9 pg (27.0-33.4); MEAN CORPUSCULAR HGB CONC 32.7 g/dL (32.0-36.0); MEAN CORPUSCULAR VOLUME 85 fl (80-97); MONOCYTES % (AUTO) 3.8 % (3-13); PLATELET COUNT 274 10^3/uL (150-450); RED BLOOD COUNT 4.53 10^6/uL (3.72-5.28); RED CELL DISTRIBUTION WIDTH 13.9 % (11.5-14.0); SEGMENTED NEUTROPHILS % (AUTO) 80.2 % (42-78); TOTAL CELLS COUNTED % (AUTO) 100 %; WHITE BLOOD COUNT 13.5 10^3/uL (4.0-10.5)
[2019-03-30 04:35] LABS: ANION GAP 8 (5-19); BLOOD UREA NITROGEN 19 mg/dL (7-20); CALCIUM 9.5 mg/dL (8.4-10.2); CARBON DIOXIDE 26 mmol/L (22-30); CHLORIDE 102 mmol/L (98-107); CHOLESTEROL 176.07 mg/dL (0-200); GLUCOSE 100 mg/dL (75-110); POTASSIUM 4.9 mmol/L (3.6-5.0); SODIUM 136.2 mmol/L (137-145); TRIGLYCERIDES 84 mg/dL (<150)
[2019-03-30 04:46] LABS: DIRECT LDL 104 mg/dL (<100)
--- NOTE | 2019-03-30 08:38 | RADIOLOGY REPORT (SQ) ---
EXAM DESCRIPTION: CAROTID DOPPLER COMPLETED DATE/TIME: 03/29/2019 9:29 pm REASON FOR STUDY: new rt sided weakness, numbness COMPARISON: None. TECHNIQUE: Grayscale ultrasound, Doppler velocity and spectra, and color Doppler images acquired of the extra-cranial carotid and vertebral arteries. Images stored on PACS. LIMITATIONS: Body habitus. FINDINGS: RIGHT CAROTID CCA Velocities: Within normal limits. ICA Velocities Peak systolic 0.67 m/s. End diastolic 0.20 m/s. Proximal ICA/CCA peak systolic ratio 0.9 and. Mild plaque in the bulb and proximal ICA. LEFT CAROTID CCA Velocities: Within normal limits. ICA Velocities Peak systolic 0.53 m/s. End diastolic 0.25 m/s. Proximal ICA/CCA peak systolic ratio 0.9. Mild plaque in the bulb and proximal ICA. VERTEBRAL ARTERIES: Obscured. SUBCLAVIAN ARTERIES: Not imaged. OTHER: No other significant finding. IMPRESSION: NO HEMODYNAMICALLY SIGNIFICANT STENOSIS. COMMENT: Quality ID #[id number]: Velocity criteria are extrapolated from the diameter data as defined by t he Society of Radiologists in Ultrasound Consensus Conference. Radiology 2003: 229; 340-346. TECHNICAL DOCUMENTATION: JOB ID: [id number] [employer]- All Rights Reserved Reading location - IP/workstation name: [email or web address]
[2019-03-30] MEDS: PREDNISONE 10 MG TABLET PO SCH (09:48)
[2019-03-30] MEDS: FAMOTIDINE 20 MG TABLET PO SCH (09:48)
[2019-03-30] MEDS ORDERED: ENOXAPARIN SODIUM INJ 40 MG/0.4 ML DISP.SYRIN SUBCUT SCH (10:00)
[2019-03-30] MEDS ORDERED: ASPIRIN 81 MG TABLET, ENT COATED PO SCH (10:00)
[2019-03-30] MEDS ORDERED: NITROGLYCERIN 0.4 MG/TAB 25 TAB/BOTTLE SL ONE (11:25)
[2019-03-30] MEDS ORDERED: NITROGLYCERIN 0.4 MG/TAB 25 TAB/BOTTLE SL PRN (11:25)
[2019-03-30] MEDS ORDERED: NITROGLYCERIN 0.4 MG/TAB 25 TAB/BOTTLE ONE (11:27)
--- NOTE | 2019-03-30 15:49 | EKG REPORT ---
SEVERITY:- NORMAL ECG - SINUS RHYTHM : Confirmed by: Nhan Joy MD 30-Mar-2019 15:48:26
[2019-03-30 16:11] VITALS: BP 123/76
--- NOTE | 2019-03-30 21:22 | PDOC DISCHARGE SUMMARY ---
General - Admit/Disc Date/PCP Admission Date/Primary Care Provider: 03/29/19 11:20 HAZEL LAURENT MD Discharge Date: 03/30/19 - Discharge Diagnosis (1) Right sided weakness Is this a current diagnosis for this admission?: Yes Summary: The patient did have a negative CT scan and MRI. Her symptoms resolved within 6 to 7 hours. She was given aspirin therapy and a statin. It is difficult to rule out a cerebrovascular event. We discussed potential causes. She has a negative carotid ultrasound. Echocardiogram is pending. I did discharge her on an aspirin and statin therapy for the possibility of this being a cerebrovascular event. We also need to refer her to a neurologist. 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 I did review the literature on the prednisone and Trulicity. The prednisone can cause myopathies but she is only been on it for 2 weeks at a low dose. So an adverse effect of the medications is quite unlikely. (2) TIA (transient ischemic attack) Is this a current diagnosis for this admission?: Yes Summary: Despite the negative studies this event is going to be treated as a transient ischemic attack. Patient will see neurology as an outpatient. This is the second episode in 2 weeks. She will be discharged on aspirin and statin therapy as noted above. (3) Crohn's colitis Is this a current diagnosis for this admission?: Yes Summary: She has been on prednisone for several weeks. I did encourage her to hold the prednisone to see if it is related to this episode. If her symptoms flare from the colitis I suggested that she call Dr. Arndt and see if an alternate colitis medication can be utilized. (4) Diabetes mellitus type 2 in obese Is this a current diagnosis for this admission?: Yes Summary: The patient will resume her Trulicity at home. (5) Murmur, cardiac Is this a current diagnosis for this admission?: Yes Summary: The patient has a murmur that she is previously unaware of. An echocardiogram was obtained and the results are currently pending. (6) Chest pain Is this a current diagnosis for this admission?: Yes Summary: The patient's right-sided weakness symptoms have resolved. When I entered to the room to discuss discharge the patient informed that she is having central chest pain. It is under the sternum. It is not radiating. She is not diaphoretic and has no nausea or palpitations. She was given a single dose of she states that it gave her relief. I ordered an EKG. This was unchanged from admission. I ordered an additional troponin. That makes for troponins less than 0.012. I did tell her that it is very unlikely for this to be cardiac discomfort. We discussed other etiologies such as esophagitis and reflux however the patient denies typical symptomatology. She will follow-up with her primary care provider. I did start the patient on aspirin therapy and atorvastatin that only for the chest pain but also for the stroke-like symptoms despite a negative MRI. She does have an LDL of just over 100 and I explained that a goal would be 70-80. (7) Morbid obesity with BMI of 40.0-44.9, adult Is this a current diagnosis for this admission?: Yes Summary: Encourage weight loss by diet and exercise - Additional Information Resuscitation Status: Full Code Discharge Diet: Cardiac Discharge Activity: Activity As Tolerated, Balance Activity w/Rest, Other - Return to work on April 04 Prescriptions: Atorvastatin Calcium [Lipitor 40 mg Tablet] 40 mg PO QHS 30 Days #30 tablet Home Medications: Dulaglutide [Trulicity] 0.5 ml INJ WE@1000 03/29/19 Aspirin [Ecotrin 81 mg EC Tablet] 81 mg PO DAILY tabec 03/30/19 Atorvastatin Calcium [Lipitor 40 mg Tablet] 40 mg PO QHS 30 Days #30 tablet 03/30/19 History of Present Illness Patient complains of: The patient reported to the emergency department complaining of right-sided weakness and right facial numbness History of Present Illness: EDILSON RAMEY is a 38 year old female who was at work when she had acute onset of not feeling well. She felt quite fatigued, hot and dizzy. She noted that the right side of her face was numb. When she had to the emergency department she appreciated weakness in her right arm and leg. She had a similar episode 1 week ago and went to urgent care. The episode resolved in 3 to 4 hours. She has recently started new medications. She has been on Trulicity for 3 weeks and prednisone therapy for 2 weeks. She does not think she had any infections over the last month or so. She reported a runny nose several weeks ago and she gets ear pain on and off. She was referred to the hospitalist service for further work-up and admission. Hospital Course Hospital Course: The patient had a fairly uneventful hospital course. Her symptoms resolved completely by yesterday afternoon. As planned I was going to discharge her this morning however with her complaint of chest pain additional blood work and EKG were obtained. These were normal. She was started on aspirin and statin therapy. She will see her primary care provider and we are trying to get her follow-up with a neurologist. Physical Exam Vital Signs: Temp Pulse Resp BP Pulse Ox 98.1 F 74 16 123/76 99 03/30/19 15:13 03/30/19 15:13 03/30/19 15:13 03/30/19 15:13 03/30/19 15:13 Intake & Output 03/29/19 03/30/19 03/31/19 06:59 06:59 06:59 Intake Total 106 240 Balance 106 240 Weight 119.1 kg General appearance: PRESENT: no acute distress, cooperative, morbidly obese, w ell-developed Head exam: PRESENT: atraumatic, normocephalic Eye exam: PRESENT: conjunctiva pink. ABSENT: scleral icterus Ear exam: PRESENT: normal external ear exam Mouth exam: PRESENT: moist, tongue midline Neck exam: ABSENT: carotid bruit, JVD, lymphadenopathy Respiratory exam: PRESENT: clear to auscultation jackson, symmetrical, unlabored. ABSENT: accessory muscle use, rales, rhonchi, tachypnea, wheezes Cardiovascular exam: PRESENT: RRR, +S1, +S2, systolic murmur - 1/6 GI/Abdominal exam: PRESENT: normal bowel sounds, soft. ABSENT: distended, tenderness Rectal exam: PRESENT: deferred Gentrourinary exam: ABSENT: indwelling catheter Musculoskeletal exam: PRESENT: ambulatory, normal inspection Neurological exam: PRESENT: alert, awake, oriented to person, oriented to place, oriented to time, oriented to situation, CN II-XII grossly intact. ABSENT: motor sensory deficit - No deficits appreciated this morning Psychiatric exam: PRESENT: appropriate affect, normal mood. ABSENT: agitated, anxious Focused psych exam: ABSENT: delusional, restlessness Skin exam: PRESENT: dry, normal color, warm. ABSENT: rash Results Laboratory Results: 03/30/19 03:57 03/30/19 03:57 03/30/19 03/30/19 03:57 03:57 WBC 13.5 H RBC 4.53 Hgb 12.7 Hct 38.7 MCV 85 MCH 27.9 MCHC 32.7 RDW 13.9 Plt Count 274 Seg Neutrophils % 80.2 H Lymphocytes % 15.0 Monocytes % 3.8 Eosinophils % 0.4 Basophils % 0.6 Absolute Neutrophils 10.8 H Absolute Lymphocytes 2.0 Absolute Monocytes 0.5 Absolute Eosinophils 0.1 Absolute Basophils 0.1 Sodium 136.2 L Potassium 4.9 Chloride 102 Carbon Dioxide 26 Anion Gap 8 BUN 19 Creatinine 0.83 Est GFR ( Amer) > 60 Est GFR (Non-Af Amer) > 60 Glucose 100 Calcium 9.5 Triglycerides 84 Cholesterol 176.07 LDL Cholesterol Direct 104 H VLDL Cholesterol 17.0 HDL Cholesterol 55 03/29/19 03/29/19 03/29/19 08:30 08:30 12:55 Creatine Kinase 50 CK-MB (CK-2) < 0.22 Troponin I < 0.012 < 0.012 03/29/19 03/30/19 18:24 12:10 Creatine Kinase CK-MB (CK-2) Troponin I < 0.012 < 0.012 Impressions: Chest X-Ray 03/29/19 08:19 IMPRESSION: 1. No significant interval changes since the prior study dated 03/21/2014. No acute findings. Head MRI 03/29/19 08:19 IMPRESSION: NORMAL MRI OF THE BRAIN WITHOUT INTRAVENOUS GADOLINIUM CONTRAST. EVIDENCE OF ACUTE STROKE: NO. Carotid Doppler Study 03/29/19 12:47 IMPRESSION: NO HEMODYNAMICALLY SIGNIFICANT STENOSIS. Qualifiers - * PATIENT BEING DISCHARGED WITH ANY OF THE FOLLOWING DIAGNOSIS: Stroke Stroke Pt being discharged on Anti-thrombolytic therapy?: Yes Stroke Pt being discharged on Anti-coagulation therapy?: No Reason(s) for not prescribing Anti-coagulation therapy:: Not indicated Stroke Pt being discharged on Statins?: Yes Acute Heart Failure - Is this a Heart Failure Patient?: No Plan Time Spent: Greater than 30 Minutes
--- NOTE | 2019-04-01 15:11 | XCELERA REPORT ---
[address] [address] Transthoracic Echocardiogram Report Name: KAROLINE EDILSON R Age: 38 yrs Gender: Female : 1980 Patient Status: Inpatient Patient Location: [facility]^A Study Date: 03/29/2019 07:48 PM Height: 66 in Weight: 266 lb BSA: 2.3 m2 Reason For Study: new murmur, tia/stroke Ordering Physician: JERROD POOLE Performed By: Ludivina Cantu Interpretation Summary Studdy quality suboptimal with some poor images limiting detailed cardiac evaluation. Lack of bubble study limits evaluation for interatrial shunt. Lack of contrast opacificaation limits evaluation for intracardiac mass/thrombus. LVEF visually appears normal in 55-60-%. The right ventricular systolic function is normal. The aortic valve is not well visualized but doppler data provided not suggestive of any significant stenosis. There is a trace or physiologic amount of tricuspid regurgitation There is a trace amount of pulmonic regurgitation Right ventricular systolic pressure is normal. There is no pericardial effusion. The aortic root is normal size. MMode/2D Measurements & Calculations RVDd: 1.9 cm LVIDd: 4.6 cm FS: 12.4 % Ao root diam: 2.6 cm IVSd: 0.93 cm LVIDs: 4.0 cm EDV(Teich): 95.6 ml LVPWd: 1.1 cm ESV(Teich): 70.0 ml Ao root area: 5.3 cm2 LA dimension: 2.8 cm EF(Teich): 26.8 % Doppler Measurements & Calculations MV E max valorie: MV P1/2t max valorie: Ao V2 max: LV V1 max P.9 cm/sec 102.8 cm/sec 97.9 cm/sec 2.2 mmHg MV A max valorie: MV P1/2t: 42.7 msec Ao max PG: LV V1 max: 57.3 cm/sec MVA(P1/2t): 5.2 cm2 3.8 mmHg 74.5 cm/sec MV E/A: 1.4 MV dec slope: 705.2 cm/sec2 MV dec time: 0.18 sec PA V2 max: PI end-d valorie: TR max valorie: MV P1/2t-pr_phl: 88.2 cm/sec 103.7 cm/sec 170.6 cm/sec 42.7 msec PA max PG: TR max P.1 mmHg 11.6 mmHg Left Ventricle The left ventricular ejection fraction is normal. Doppler data inadequate for diastolic evaluation. Right Ventricle The right ventricular systolic function is normal. Atria Interatrial septal thickening is noted. Mitral Valve There is mild mitral leaflet calcification. Focal thickening with preserved openng of leaflets. Aortic Valve The aortic valve is not well visualized secondary to technical limitations. AV leaflets appear thickened/calcified. There is a peak gradient of 4 mm of Hg. Tricuspid Valve The tricuspid valve is not well visualized secondary to technical limitations. There is a trace or physiologic amount of tricuspid regurgitation. Right ventricular systolic pressure is normal. Pulmonic Valve The pulmonic valve is not well visualized. There is a trace amount of pulmonic regurgitation. Great Vessels The aortic root is not well visualized. The aortic root is normal size. The inferior vena cava appeared small and collapsed with respiration (RAP 0-5 mmHg). Effusions There is no pericardial effusion. : JERROD POOLE Sanjay
== END 2019-03-30 16:48 | disposition home or self-care (01) ==
LOC: ER 07:34 → EH 11:20 → INTOOBSV 11:20 → UNDOADMIN 11:20 → 3W 17:39
PROVIDERS: ADMIT Hospitalist; ATTEND Hospitalist
DX: G45.9 Transient cerebral ischemic attack, unspecified (principal); G81.91 Hemiplegia, unspecified affecting right dominant side; K50.111 Crohn's disease of large intestine with rectal bleeding; E11.9 Type 2 diabetes mellitus without complications; E66.9 Obesity, unspecified; R07.9 Chest pain, unspecified; R01.1 Cardiac murmur, unspecified; E66.01 Morbid (severe) obesity due to excess calories; R63.0 Anorexia; M54.2 Cervicalgia; M25.552 Pain in left hip; Z68.41 Body mass index [BMI] 40.0-44.9, adult; Z79.52 Long term (current) use of systemic steroids; Z90.49 Acquired absence of other specified parts of digestive tract
CPT/HCPCS: 93005 ×2; 99285; 36415 ×2; 82553; 82962 ×2; 82550; 85025 ×2; 85610; 85730; 80048; 80053; 84484 ×2; 83036; 80061; 93306; 93880; 70551; 71045; 93010 ×2; 97110; 97116; 97163; G0378 ×3; J1650; J7512 ×2; J3490 ×2; J7030

== ENCOUNTER → 2020-02-01 | Outpatient (CLI) | payer OTHER ==
[2020-02-01 15:17] LABS: ABSOLUTE EOSINOPHILS # (AUTO) 0.2 10^3/uL (0.0-0.6); ABSOLUTE LYMPHOCYTES (AUTO) 2.1 10^3/uL (0.5-4.7); ABSOLUTE MONOCYTES (AUTO) 0.5 10^3/uL (0.1-1.4); ABSOLUTE NEUT (AUTO) 5.1 10^3/uL (1.7-8.2); BASOPHILS % (AUTO) 0.6 % (0-2); HEMATOCRIT 37.9 % (36.0-47.0); HEMOGLOBIN 12.9 g/dL (12.0-15.5); LYMPHOCYTES % (AUTO) 26.4 % (13-45); MEAN CORPUSCULAR HEMOGLOBIN 28.5 pg (27.0-33.4); MEAN CORPUSCULAR VOLUME 84 fl (80-97); MONOCYTES % (AUTO) 5.7 % (3-13); PLATELET COUNT 301 10^3/uL (150-450); RED BLOOD COUNT 4.52 10^6/uL (3.72-5.28); SEGMENTED NEUTROPHILS % (AUTO) 64.3 % (42-78); TOTAL CELLS COUNTED % (AUTO) 100 %
[2020-02-01 16:00] LABS: ERYTHROCYTE SEDIMENTATION RATE 28 mm/hr (0-20)
== END ==
LOC: OD 14:27
PROVIDERS: ATTEND Internal Medicine Gastroenterology
DX: K52.9 Noninfective gastroenteritis and colitis, unspecified (principal)
CPT/HCPCS: 36415; 85025; 85652; 86140

== ENCOUNTER 2020-02-22 05:35 | Day surgery (SDC) | payer OTHER ==
[2020-02-22] MEDS ORDERED: PROPOFOL INJ 200 MG/20 ML VIAL IV ONE (07:16)
[2020-02-22] MEDS ORDERED: DIPHENHYDRAMINE HCL 50 MG/ML VIAL IV PRN (07:51)
[2020-02-22] MEDS ORDERED: PROMETHAZINE HCL INJ 25 MG/1 ML VIAL IV PRN ×2 (07:51)
[2020-02-22] MEDS ORDERED: OXYCODONE-ACETAMINOPHEN 5-325 MG TABLET PO PRN ×2 (07:51)
[2020-02-22] MEDS ORDERED: MEPERIDINE HCL/PF INJ 25 MG/1 ML DISP.SYRIN IV PRN (07:51)
[2020-02-22] MEDS ORDERED: FENTANYL CITRATE INJ/PF 100 MCG/2 ML AMPUL IV PRN ×3 (07:51)
[2020-02-22 09:02] VITALS: BP 146/96
--- NOTE | 2020-02-22 10:52 | Operative Report ---
Operative Report DATE OF SURGERY: 02/22/20 Operative Report: The risk, benefits and alternatives of the procedure including the risk of bleeding, perforation requiring surgery have been explained to the patient in detail and informed consent has been obtained. Patient is placed in a left, lateral decubital position. Timeout was called. Propofol medication is administered. Rectal examination is done which did not reveal any masses, tears or fissures. An Olympus videoscope was introduced into the patient's rectum. Scope was then carefully advanced all the way to the cecum. Cecum was identified by the usual anatomical landmarks including the ileocecal valve as well as the appendiceal office. Photodocumentation is obtained. Scope was then sequentially pulled back via the various segments of the colon including the ascending colon, hepatic flexure, transverse colon, splenic flexure, descending colon finally into the rectosigmoid portions of the colon. Retroflexion maneuver is performed. PREOPERATIVE DIAGNOSIS: Abdominal pain, blood in stools POSTOPERATIVE DIAGNOSIS: Right side colon inflammation status post biopsy rule out ulcerative colitis rule out ischemic colitis OPERATION: Colonoscopy with biopsy SURGEON: HAZEL LAURENT ANESTHESIA: LMAC TISSUE REMOVED OR ALTERED: As noted above. COMPLICATIONS: None. ESTIMATED BLOOD LOSS: None. INTRAOPERATIVE FINDINGS: As noted above. PROCEDURE: Patient tolerated the procedure well. No immediate postprocedure complications are noted. Patient is discharged in good condition. Discharge date 02/22/2020. Discharge diet: Regular. Discharge activity: Regular. 2 to 3-week follow-up to discuss findings. We will wait on the pathology. Patient is instructed to call the office or proceed to the emergency room should there be any further problems or questions.
== END 2020-02-22 09:10 | disposition home or self-care (01) ==
LOC: OROUT 05:35
PROVIDERS: ATTEND Internal Medicine Gastroenterology
DX: K52.9 Noninfective gastroenteritis and colitis, unspecified (principal); K62.5 Hemorrhage of anus and rectum; Z88.0 Allergy status to penicillin; R73.9 Hyperglycemia, unspecified; K51.90 Ulcerative colitis, unspecified, without complications; J45.909 Unspecified asthma, uncomplicated; Z79.51 Long term (current) use of inhaled steroids; Z79.899 Other long term (current) drug therapy; Z79.82 Long term (current) use of aspirin
CPT/HCPCS: 45380; 82962; 81025; 88305 ×2; 00811; J2704; 811

== ENCOUNTER 2020-03-11 07:12 | Emergency (ER) | payer OTHER ==
[2020-03-11 07:19] VITALS: BP 125/78
--- NOTE | 2020-03-11 07:58 | RADIOLOGY REPORT (SQ) ---
EXAM DESCRIPTION: XR ANKLE 3 OR MORE VIEWS COMPLETED DATE/TME: 03/11/2020 07:26 CLINICAL HISTORY: 39 years Female, fall, bone tenderness COMPARISON:Jun 06 2014 Findings: Moderate diffuse right lateral malleolus ankle swelling. Moderate calcaneal enthesophytes. Bones, joints, and soft tissues of the RIGHT XR ANKLE 3 OR MORE VIEWS appear otherwise unremarkable. IMPRESSION: Moderate diffuse right lateral malleolus ankle swelling.
--- NOTE | 2020-03-11 08:07 | ER Document Report ---
ED Extremity Problem, Lower - General Chief Complaint: Ankle Pain Stated Complaint: FALL/ANKLE PAIN Time Seen by Provider: 03/11/20 07:48 Primary Care Provider: CHELY REED PA-C [Primary Care Provider] - Follow up as needed Mode of Arrival: Ambulatory Information source: Patient Notes: 39-year-old female presents to the emergency department with a complaint of in jury to her right ankle. Apparently she was walking while carrying an object when she rolled her right ankle after a misstep. She fell to the ground. She was able to put some weight on the ankle however, increased swelling and pain has led her to come to the emergency department for evaluation for possible fracture. She denies any other associated injuries. TRAVEL OUTSIDE OF THE [place] IN LAST 30 DAYS: No - Related Data Allergies/Adverse Reactions: Penicillins Allergy (Severe, Verified 03/11/20 07:22) swelling,rash Past Medical History - Social History Smoking Status: Never Smoker Chew tobacco use (# tins/day): No Frequency of alcohol use: None Drug Abuse: None Family History: Arthritis, COPD, Hyperlipidemia, Hypertension, Malignancy. denies: CAD, CVA, DM, Thyroid Disfunction Patient has homicidal ideation: No - Past Medical History Cardiac Medical History: Denies: Hx Coronary Artery Disease, Hx Heart Attack, Hx Hypertension Pulmonary Medical History: Reports: Hx Asthma Denies: Hx Bronchitis, Hx COPD, Hx Pneumonia Neurological Medical History: Reports: Hx Migraine. Denies: Hx Cerebrovascular Accident, Hx Seizures Endocrine Medical History: Reports: Hx Diabetes Mellitus Type 2 Renal/ Medical History: Reports: Hx Ovarian Cysts - hx of. Denies: Hx Kidney Stones, Hx Peritoneal Dialysis, Hx Pelvic Inflammatory Disease Malignancy Medical History: Denies: Hx Breast Cancer, Hx Cervical Cancer, Hx Ovarian Cancer GI Medical History: Reports: Hx Crohn's Disease - Based on recent colonoscopy it is felt that she has Crohn's more so than UC, Hx Ulcerative Colitis. Denies: Hx Gastroesophageal Reflux Disease, Hx Hiatal Hernia, Hx Ulcer Musculoskeletal Medical History: Denies Hx Arthritis, Denies Hx Fibromyalgia Psychiatric Medical History: Reports: Hx Depression Traumatic Medical History: Reports: Hx Fractures - rt collarbone,sternum,ribs bilateral Infectious Medical History: Denies: Hx C-Diff, Hx HIV Past Surgical History: Reports: Hx Section - x1, Hx Cholecystectomy - x1, Hx Tubal Ligation. Denies: Hx Hysterectomy, Hx Pacemaker - Immunizations Immunizations up to date: Yes Hx Diphtheria, Pertussis, Tetanus Vaccination: Yes Review of Systems - Review of Systems Notes: Constitutional: Negative for fever. HENT: Negative for sore throat. Eyes: Negative for visual changes. Cardiovascular: Negative for chest pain. Respiratory: Negative for shortness of breath. Gastrointestinal: Negative for abdominal pain, vomiting or diarrhea. Genitourinary: Negative for dysuria. Musculoskeletal: + Right ankle swelling Skin: Negative for rash. Neurological: Negative for headaches, weakness or numbness. 10 point ROS negative except as marked above and in HPI. Physical Exam - Vital signs Vitals: Temp Pulse Resp BP Pulse Ox 98.5 F 73 16 125/78 98 03/11/20 07:18 03/11/20 07:18 03/11/20 07:18 03/11/20 07:18 03/11/20 07:18 - Notes Notes: PHYSICAL EXAMINATION: Physical Exam: General: Well-nourished well-developed 39-year-old female in no acute distress HEENT: NC/AT, pupils equal round and reactive to light, MM moist,nares clear, oropharynx clear, airway patent Neck: supple, no adenopathy, no masses. Good range of motion Lungs: clear, no wheezing, no rales no rhonchi CVS: Regular rate and rhythm no murmur gallop or rub Abdomen: Soft, active, nontender, no masses, no hepatosplenomegaly Ext: + Marked swelling in the lateral malleoli region of the ankle with mild discoloration. Neurovascular intact Neuro: Alert and responsive, moving all 4 extremities on command, cranial nerves intact, no focal findings Skin: Intact no open lesions, no rash PSYCH: Normal mood, normal affect. Course - Re-evaluation Re-evalutation: 03/11/20 08:06 Reviewed the x-ray with no signs of fracture, significant swelling noted in the lateral aspect of the right ankle. A Dom wrap and crutches are offered due to patient is a treatment. He can follow-up with her primary care doctor as needed. Rest, ice, compression and elevation, ibuprofen/Tylenol for pain. - Vital Signs Vital signs: Temp Pulse Resp BP Pulse Ox 98.5 F 73 16 125/78 98 03/11/20 07:22 03/11/20 07:18 03/11/20 07:18 03/11/20 07:18 03/11/20 07:18 - Diagnostic Test Radiology reviewed: Image reviewed, Reports reviewed - Right ankle x-ray: No fracture seen + swelling right lateral malleoli region Discharge - Discharge Clinical Impression: Right ankle sprain Qualifiers: Encounter type: initial encounter Involved ligament of ankle: unspecified ligament Qualified Code(s): S93.401A - Sprain of unspecified ligament of right ankle, initial encounter Condition: Good Disposition: HOME, SELF-CARE Instructions: Sprained Ankle ([facility]) Additional Instructions: Rest, ice, elevation, compression wrap. Use crutches for ambulation, may use a 3D boot after swelling has gone down. Please follow-up with your primary care doctor as needed. May use Tylenol or ibuprofen for pain. HOME CARE INSTRUCTIONS & INFORMATION: Thank you for choosing us for your medical needs. We hope you're satisfied with the care you received. After you leave, you must properly care for your problem and, at the same time, observe its progress. Any condition can change. Some illnesses can change rapidly over hours or days. If your condition worsens, return to the Emergency Department or see your physician promptly. ABOUT YOUR X-RAYS AND EKG'S: If you had an EKG or X-rays taken, they have been read by the Emergency Physician. The X-rays and EKG's will also be read by a Radiologist or Cottrell Operator within 24 hours. If discrepancies are noted, you will be notified by telephone. Please be certain the ED has a correct telephone number & address where you can be reached. Also, realize that some fractures or abnormalities do not show up on initial X-rays. If your symptoms continue, see your physician. ABOUT YOUR LABORATORY TEST: If you had laboratory tests, the results have been reviewed by the Emergency Physician. Some test results (for example cultures) may not be available for several days. You will be contacted if any test result shows you need additional treatment. Please be certain the ED has a correct telephone number and address where you can be reached. ABOUT YOUR MEDICATIONS: You will receive instructions on how to take your medicine on the prescription label you receive. Additional information may be provided by the Pharmacy. If you have questions afterwards, call the ED for clarification or further instructions. Some prescribed medications may cause drowsiness. Do not perform tasks such as driving a car or operating machinery without consulting your Pharmacist. If you feel you need a refill of pain medication, your condition will need re-evaluation. Please do not call for a refill of any medication. ABOUT YOUR SIGNATURE: Signature of this document acknowledges to followin. Understanding that you received emergency treatment and that you may be released before al medical problems are known or treated. Please be certain the ED has a correct phone number & address where you can be reached. 2. Acknowledgement that you will arrange for follow-up care as recommended. 3. Authorization for the Emergency Physician to provide information to your follow-up Physician in order to maximize your care. AT ANY TIME, IF YOUR SYMPTOMS CHANGE SIGNIFICANTLY OR WORSEN OR YOU DEVELOP NEW SYMPTOMS, RETURN TO THE EMERGENCY DEPARTMENT IMMEDIATELY FOR RE-EVALUATION. OUR GOAL IS TO PROVIDE EXCELLENT MEDICAL CARE! WE HOPE THAT WE HAVE MET YOUR EXPECTATIONS DURING YOUR EMERGENCY DEPARTMENT VISIT AND THAT YOU FEEL YOU HAVE RECEIVED EXCELLENT CARE! Referrals: CHELY REED PA-C [Primary Care Provider] - Follow up as needed
== END 2020-03-11 08:27 | disposition home or self-care (01) ==
LOC: ER 07:12
DX: S93.401A Sprain of unspecified ligament of right ankle, initial encounter (principal); X50.0XXA Overexertion from strenuous movement or load, initial encounter; E11.9 Type 2 diabetes mellitus without complications; Z90.49 Acquired absence of other specified parts of digestive tract; Z98.51 Tubal ligation status; Z88.0 Allergy status to penicillin
CPT/HCPCS: 99283

== ENCOUNTER 2020-04-12 06:41 | Emergency (ER) | payer OTHER ==
[2020-04-12] MEDS ORDERED: ACETAMINOPHEN 325 MG TABLET PO ONE (06:54)
--- NOTE | 2020-04-12 09:30 | ER Document Report ---
HPI - HPI Patient complains to provider of: Right leg swelling Time Seen by Provider: 04/12/20 09:20 Quality of pain: Achy Pain Level: 3 Context: Patient presents complaint of right lower extremity swelling for the past 4 days. Patient states that she did recently start back to work and is uncertain if this may be the cause of her swelling. Patient also states that she had an ankle sprain a month ago that has continued to give her pain. Patient denies any new injury to the ankle. Patient has been wearing an ankle immobilizer while working. Patient denies any chest pain or shortness of breath. Patient denies any recent bedrest or immobilization. No previous history of DVT or PE. Associated Symptoms: denies: Chest pain, Fever, Shortness of breath Exacerbated by: Standing, Movement, Walking Relieved by: Denies Similar symptoms previously: No Recently seen / treated by doctor: No - ROS ROS below otherwise negative: Yes Systems Reviewed and Negative: Yes All other systems reviewed and negative - GASTROINTESTINAL Gastrointestinal: DENIES: Nausea, Patient vomiting - REPRODUCTIVE Reproductive: DENIES: : - MUSCULOSKELETAL Musculoskeletal: REPORTS: Extremity pain, Swelling - DERM Skin Color: Normal Skin Problems: None Past Medical History - General Information source: Patient - Social History Smoking Status: Never Smoker Chew tobacco use (# tins/day): No Frequency of alcohol use: None Drug Abuse: None 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 denies: CAD, CVA, DM, Thyroid Disfunction Pulmonary Medical History: Reports: Hx Asthma Denies: Hx Bronchitis, Hx COPD, Hx Pneumonia Neurological Medical History: Reports: Hx Migraine, Other - TIA. Denies: Hx Cerebrovascular Accident, Hx Seizures Endocrine Medical History: Reports: Hx Diabetes Mellitus Type 2 Renal/ Medical History: Reports: Hx Ovarian Cysts - hx of. Denies: Hx Kidney Stones, Hx Peritoneal Dialysis, Hx Pelvic Inflammatory Disease Malignancy Medical History: Denies: Hx Breast Cancer, Hx Cervical Cancer, Hx Ovarian Cancer GI Medical History: Reports: Hx Crohn's Disease - Based on recent colonoscopy it is felt that she has Crohn's more so than UC, Hx Ulcerative Colitis. Denies: Hx Gastroesophageal Reflux Disease, Hx Hiatal Hernia, Hx Ulcer Musculoskeletal Medical History: Denies Hx Arthritis, Denies Hx Fibromyalgia Psychiatric Medical History: Reports: Hx Depression Traumatic Medical History: Reports: Hx Fractures - rt collarbone,sternum,ribs bilateral Infectious Medical History: Denies: Hx C-Diff, Hx HIV Past Surgical History: Reports: Hx Section - x1, Hx Cholecystectomy - x1, Hx Tubal Ligation - Immunizations Immunizations up to date: Yes Hx Diphtheria, Pertussis, Tetanus Vaccination: Yes Vertical Provider Document - CONSTITUTIONAL Agree With Documented VS: Yes Exam Limitations: No Limitations General Appearance: WD/WN, No Apparent Distress - INFECTION CONTROL TRAVEL OUTSIDE OF THE [place] IN LAST 30 DAYS: No - HEENT HEENT: Atraumatic, Normocephalic - NECK Neck: Normal Inspection, Supple - RESPIRATORY Respiratory: Breath Sounds Normal, No Respiratory Distress - CARDIOVASCULAR Cardiovascular: Regular Rate, Regular Rhythm Pulses: Normal: Dorsalis pedis - MUSCULOSKELETAL/EXTREMETIES Musculoskeletal/Extremeties: MAEW, FROM, Tender - Tenderness to right ankle, 1+ edema, no deformity, no ecchymosis, Edema - 1+ edema to right lower extremity - NEURO Level of Consciousness: Awake, Alert, Appropriate Motor/Sensory: No Motor Deficit - DERM Integumentary: Warm, Dry, No Rash Course - Re-evaluation Re-evalutation: 04/12/20 11:15 Preliminary Doppler results negative for acute DVT 04/12/20 11:50 No evidence of DVT at this time, patient would like a different type of ankle splint as she feels like her current splint does not fit well. - Vital Signs Vital signs: Temp Pulse Resp BP Pulse Ox 98.0 F 77 16 129/83 H 97 04/12/20 06:47 04/12/20 06:47 04/12/20 06:47 04/12/20 06:47 04/12/20 06:47 Procedures - Immobilization Right Ankle Pre-Proc Neuro Vasc Exam: Normal Immobilizer type: Ankle stirrup Performed by: PCT Post-Proc Neuro Vasc Exam: Normal Discharge - Discharge Clinical Impression: Right leg swelling Right ankle pain Qualifiers: Chronicity: unspecified Qualified Code(s): M25.571 - Pain in right ankle and joints of right foot Condition: Stable Disposition: HOME, SELF-CARE Instructions: Ankle Stirrup Splint ([facility]), Leg Pain Nonspecific ([facility]), Sprained Ankle ([facility]) Additional Instructions: Return immediately for any new or worsening symptoms Followup with your primary care provider, call tomorrow to make a followup appointment You may use supportive stockings at home to help with leg swelling. Follow-up with your orthopedic doctor for recheck for evaluation of your continued right ankle tenderness Recheck for any persistent leg swelling, worsening pain, chest pain, shortness of breath or any concerning new symptoms Forms: Return to Work Referrals: CHELY REED PA-C [Primary Care Provider] - Follow up tomorrow
[2020-04-12 12:12] VITALS: BP 113/75
--- NOTE | 2020-04-12 16:51 | RADIOLOGY REPORT (SQ) ---
EXAM DESCRIPTION: VENOUS UNILATERAL LOWER IMAGES COMPLETED DATE/TIME: 04/12/2020 4:15 pm REASON FOR STUDY: RLE swelling COMPARISON: None. TECHNIQUE: Dynamic and static pack scale and color images acquired of the right leg venous system. S elected spectral images acquired with additional compression and augmentation maneuvers. The contrala teral common femoral vein and saphenofemoral junction were also imaged. Images stored on PACS. LIMITATIONS: None. FINDINGS: COMMON FEMORAL: Normal phasicity, compression and augmentation. No visualized echogenic ma terial on pack scale. No defects on color images. FEMORAL: Normal compression and augmentation. No visualized echogenic material on pack scale. No defe cts on color images. POPLITEAL: Normal compression, augmentation. No visualized echogenic material on pack scale. No defec ts on color images. CALF VESSELS: Normal compression, augmentation. No visualized echogenic material on pack scale. No de fects on color images. GSV and SSV: Normal compression, augmentation. No visualized echogenic material on pack scale. No def ects on color images. ANY DEEP VENOUS INSUFFICIENCY: Not evaluated. ANY EVIDENCE OF POPLITEAL CYST: No. OTHER: No other significant finding. CONTRALATERAL COMMON FEMORAL VEIN AND SAPHENOFEMORAL JUNCTION: Normal phasicity, compression and augmentation. No visualized echogenic material on pack scale. No de fects on color images. IMPRESSION: NO EVIDENCE DVT OR SVT IN THE RIGHT LEG. TECHNICAL DOCUMENTATION: JOB ID: [id number] 2010 [employer]- All Rights Reserved Reading location - IP/workstation name: [email or web address]
== END 2020-04-12 12:14 | disposition home or self-care (01) ==
LOC: ER 06:41
DX: R60.0 Localized edema (principal); S93.409A Sprain of unspecified ligament of unspecified ankle, initial encounter; X58.XXXA Exposure to other specified factors, initial encounter; M25.571 Pain in right ankle and joints of right foot
CPT/HCPCS: 93971; 99283

== ENCOUNTER 2020-10-16 20:13 | Emergency (ER) | payer MEDICAID, OTHER ==
--- NOTE | 2020-10-16 21:47 | ER Document Report ---
HPI - HPI Patient complains to provider of: Left hand injury Time Seen by Provider: 10/16/20 21:41 Pain Level: 3 Context: 40-year-old female presents to the emergency room with a puncture wound to her left hand between the thumb and index finger. Patient states she was trying to cut something when it slipped puncturing her left hand with a kitchen knife. Tetanus is up-to-date. Patient is right-handed. Bleeding is controlled. Associated Symptoms: None Exacerbated by: Movement Relieved by: Remaining still Similar symptoms previously: No Recently seen / treated by doctor: No - ROS Systems Reviewed and Negative: Yes All other systems reviewed and negative - NEURO Neurology: DENIES: Weakness - REPRODUCTIVE Reproductive: DENIES: : - MUSCULOSKELETAL Musculoskeletal: REPORTS: Extremity pain - DERM Skin Color: Erythema Skin Problems: Puncture Wound Past Medical History - General Information source: Patient - Social History Smoking Status: Never Smoker Frequency of alcohol use: None Drug Abuse: None Family History: Arthritis, COPD, Hyperlipidemia, Hypertension, Malignancy. denies: CAD, CVA, DM, Thyroid Disfunction - Past Medical History Cardiac Medical History: Denies: Hx Coronary Artery Disease, Hx Heart Attack, Hx Hypertension Pulmonary Medical History: Reports: Hx Asthma Denies: Hx Bronchitis, Hx COPD, Hx Pneumonia Neurological Medical History: Reports: Hx Migraine. Denies: Hx Cerebrovascular Accident, Hx Seizures Endocrine Medical History: Reports: Hx Diabetes Mellitus Type 2 Renal/ Medical History: Reports: Hx Ovarian Cysts - hx of. Denies: Hx Kidney Stones, Hx Peritoneal Dialysis, Hx Pelvic Inflammatory Disease Malignancy Medical History: Denies: Hx Breast Cancer, Hx Cervical Cancer, Hx Ovarian Cancer GI Medical History: Reports: Hx Crohn's Disease - Based on recent colonoscopy it is felt that she has Crohn's more so than UC, Hx Ulcerative Colitis. Denies: Hx Gastroesophageal Reflux Disease, Hx Hiatal Hernia, Hx Ulcer Musculoskeletal Medical History: Denies Hx Arthritis, Denies Hx Fibromyalgia Psychiatric Medical History: Reports: Hx Depression Traumatic Medical History: Reports: Hx Fractures - rt collarbone,sternum,ribs bilateral Infectious Medical History: Denies: Hx C-Diff, Hx HIV Past Surgical History: Reports: Hx Section - x1, Hx Cholecystectomy - x1, Hx Tubal Ligation. Denies: Hx Hysterectomy, Hx Pacemaker - Immunizations Immunizations up to date: Yes Hx Diphtheria, Pertussis, Tetanus Vaccination: Yes Vertical Provider Document - CONSTITUTIONAL Agree With Documented VS: Yes Exam Limitations: No Limitations General Appearance: Mild Distress - INFECTION CONTROL TRAVEL OUTSIDE OF THE [place] IN LAST 30 DAYS: No - HEENT HEENT: Atraumatic, Normocephalic - NECK Neck: Normal Inspection, Supple - RESPIRATORY Respiratory: Breath Sounds Normal, No Respiratory Distress - CARDIOVASCULAR Cardiovascular: Regular Rate, Regular Rhythm, No Murmur - MUSCULOSKELETAL/EXTREMETIES Musculoskeletal/Extremeties: FROM, Non-Tender - NEURO Level of Consciousness: Awake, Alert, Appropriate Motor/Sensory: No Motor Deficit, No Sensory Deficit Notes: Positive left radial pulse. Capillary refill less than 3 seconds. - DERM Integumentary: Warm, Dry Notes: Patient with a 1/2 cm puncture wound noted to the left hand between the left thumb and index finger. Bleeding is controlled. Course - Re-evaluation Re-evalutation: 10/16/20 22:38 Patient is resting comfortably. Wound cleansed Steri-Strips applied by nursing staff as documented. Reviewed negative x-ray results with patient. Counseled Steri-Strips will fall off on their own in approximately 7 to 10 days. Can take Tylenol as needed for pain. Keep the Steri-Strips dry. Follow-up with her primary care physician as needed. Patient was given strict return to the emergency room guidelines. Return for any new or worsening symptoms. All questions were answered. Patient verbalized understanding and agrees with plan of care. - Vital Signs Vital signs: Temp Pulse Resp BP Pulse Ox 97.4 F 85 16 138/85 H 98 10/16/20 20:15 10/16/20 20:15 10/16/20 20:15 10/16/20 20:15 10/16/20 20:15 - Laboratory Results Critical Laboratory Results Reviewed: No Critical Results - Radiology Results Critical Radiology Results Reviewed: No Critical Results Discharge - Discharge Clinical Impression: Puncture wound of left hand without foreign body Qualifiers: Encounter type: initial encounter Qualified Code(s): S61.432A - Puncture wound without foreign body of left hand, initial encounter Condition: Stable Disposition: HOME, SELF-CARE Instructions: Puncture Wound ([facility]) Additional Instructions: Keep wound clean and dry. Steri-Strips will fall off in 7 to 10 days. Tylenol as needed for pain. Follow-up primary care physician as needed. Return to the emergency room for any new or worsening symptoms. Referrals: DEREK,CHELY, PA-C [Primary Care Provider] - Follow up as needed
--- NOTE | 2020-10-16 22:28 | RADIOLOGY REPORT (SQ) ---
EXAM DESCRIPTION: HAND LEFT 3 VIEWS CLINICAL HISTORY: 40 years Female, injury laceration between the first and second fingers. COMPARISON: None. FINDINGS: Soft tissue injury is present in the first web space. There is no radiopaque foreign body identified. Alignment of the hand is anatomic. Bone mineralization is normal. No fracture is seen. No erosions or periostitis. IMPRESSION: Soft tissue injury. No fracture. No radiopaque foreign body.
[2020-10-16 23:01] VITALS: BP 134/72
== END 2020-10-16 23:00 | disposition home or self-care (01) ==
LOC: ER 20:13
DX: S61.432A Puncture wound without foreign body of left hand, initial encounter (principal); W26.0XXA Contact with knife, initial encounter; Y93.89 Activity, other specified; J45.909 Unspecified asthma, uncomplicated; E11.9 Type 2 diabetes mellitus without complications
CPT/HCPCS: 99283